=== PATIENT | male | born 1990 | race Caucasian/White ===

== ENCOUNTER → 2016-10-10 | Outpatient (CLI) | payer BC ==
--- NOTE | 2016-10-10 12:39 | RAD ---
Indication ankle pain for several months. AP oblique and lateral imaging of the left ankle was performed. No bony abnormality is seen
== END | disposition home or self-care (01) ==
LOC: DXRADRC 12:19
PROVIDERS: ATTEND Nurse Practitioner Family
DX: M25.572 Pain in left ankle and joints of left foot (principal)
CPT/HCPCS: 73610

== ENCOUNTER → 2018-09-02 | Outpatient (CLI) | payer OTHER ==
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
== END | disposition home or self-care (01) ==
LOC: DXRAD 13:47
PROVIDERS: ATTEND Registered Nurse
DX: M25.571 Pain in right ankle and joints of right foot (principal)
CPT/HCPCS: 73600

== ENCOUNTER 2019-09-09 17:00 | Emergency (ER) | payer OTHER ==
[~2019-09-09] VITALS: Ht 172.7 cm; Wt 78.0 kg
[2019-09-09 17:12] VITALS: BP 126/76
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
== END 2019-09-09 17:30 | disposition home or self-care (01) ==
LOC: ER 17:00
DX: S60.032A Contusion of left middle finger without damage to nail, initial encounter (principal); S60.042A Contusion of left ring finger without damage to nail, initial encounter; Z77.21 Contact with and (suspected) exposure to potentially hazardous body fluids; Z88.5 Allergy status to narcotic agent; X58.XXXA Exposure to other specified factors, initial encounter; Y93.89 Activity, other specified; Y92.89 Other specified places as the place of occurrence of the external cause; Y99.8 Other external cause status
CPT/HCPCS: 86703; 86705; 86709; 86803; 87340; 99283

== ENCOUNTER → 2021-05-17 | Outpatient (CLI) | payer OTHER ==
--- NOTE | 2021-05-17 13:09 | RAD ---
EXAM: High-resolution chest CT without intravenous contrast. HISTORY: Pulmonary fibrosis. Covid 19. TECHNIQUE: Computed tomographic images of the chest were obtained without contrast. Inspiratory and e xpiratory high-resolution images were obtained Multiplanar reformatting was performed. *One or more of the following individualized dose reduction techniques were utilized for this examina tion: 1. Automated exposure control. 2. Adjustment of the mA and/or kV according to patient size. 3. Use of iterative reconstruction technique. COMPARISON: None. FINDINGS: The heart is normal in size. The aorta is normal in caliber. There is slight increased soft tissue density within the anterior mediastinum due to residual thymus or lymphatic in etiology. No p athologically enlarged lymph node is seen. There is no pneumothorax or pleural effusion. There is a m ultifocal lower lobe predominant groundglass opacity throughout both lungs. There is no consolidation . There is no suspicious pulmonary nodule. There is no bronchiectasis or bronchial wall thickening. T here is no acute finding involving the upper abdomen. There is no acute or suspicious osseous finding . There are degenerative changes involving the mid thoracic spine. IMPRESSION: Nonspecific lower lobe predominant bilateral groundglass opacities, likely due to atypic al infection given a history of Covid 19. There may be superimposed air trapping due to small airways disease. Electronically signed by: Makayla Lackey MD (05/17/2021 1:06 PM) [id number]
== END ==
LOC: CT 11:24
PROVIDERS: ATTEND Preventive Medicine Occupational Medicine
DX: J84.10 Pulmonary fibrosis, unspecified (principal); U09.9 Post COVID-19 condition, unspecified; M47.814 Spondylosis without myelopathy or radiculopathy, thoracic region
CPT/HCPCS: 71250